=== PATIENT | male | born 1945 | race Caucasian/White ===

== ENCOUNTER 2022-07-12 15:49 | Outpatient (CLI) | payer MEDICARE, SELFPAY ==
--- OUTSIDE RECORDS SUMMARY | 2022-07-12 07:56 | XMS_ITS | Clinical Summary ---
:1945 Author Organization [facility] [place] [address] Care Team Providers Name Role Phone Stalin Wood MD Primary Care Provider Allergies No known active allergies Medications Medication Sig Dispensed Refills Start Date End Date Status LIPITOR 10 MG TAB Take 10 mg by 0 11/25/2007 Active mouth at bedtime. hydroCHLOROthiazide 12.5 Take 12.5 mg by 0 0 Active mg capsule mouth every morning. cholecalciferol (VITAMIN Take 1,000 Units 0 Active D3) 1,000 unit tablet by mouth once daily. glucosamine HCl 1,500 mg Take 1,500 mg by 0 Active tab mouth once daily. multivitamin therapeutic Take 1 tablet by 0 Active (THERAGRAN; ONCOVITE) mouth once daily. tablet tadalafiL (CIALIS) 5 mg Take 5 mg by mouth 0 020 Active tablet once daily if needed. vit Take 1 capsule by 0 05/16/2020 A ctive C,B-Np-clcvn-lutein-zeax mouth once daily. an (PRESERVISION AREDS-2) capsule fish oil-omega-3 fatty Take 2 capsules by 0 Active acids (FISH OIL) mouth once daily. 1,200-360 mg cap One capsule is 1200 mg-360 mg acetaminophen (TYLENOL Take 2 tablets by 0 0 Active EXTRA STRGTH) 500 mg mouth every 6 tabletIndications: Renal hours if needed. mass Max acetaminophen dose: 4000mg in 24 hrs. oxyCODONE (ROXICODONE) 5 Take 1-2 tablets 12 tablet 0 07/06/20 20 Active mg immediate release by mouth every 4 tabletIndications: Renal hours if needed mass for Pain sennosides-docusate, Take 1-2 tablets 30 tablet 1 07/06/2020 Active 8.6-50 mg, (SENOKOT S) by mouth 2 times 8.6-50 mg daily if needed. 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 How many drinks containing alcohol do you have 1 or 2 05/16/2020 on a typical day when you are drinking? How often do you have six or more drinks on one Never 05/16/2020 occasion? Comment: Not asked Sex Assigned at Date Recorded Not on file Obstetrics History Last Filed Vital Signs Vital Sign Reading Time Taken Comments Blood Pressure 142/83 07/06/2020 8:00 AM CDT Pulse 57 07/06/2020 8:00 AM CDT Temperature 36.6 ??C (97.9 ??F) 07/06/2020 8:00 AM CDT Respiratory Rate 18 07/06/2020 8:00 AM CDT Oxygen Saturation 96% 07/06/2020 8:00 AM CDT Inhaled Oxygen Concentration - - Weight 68.7 kg (151 lb 7.3 oz) 07/04/2020 6:28 AM CDT Height 172.7 cm (5' 8) 07/04/2020 6:28 AM CDT Body Mass Index 23.03 07/04/2020 6:28 AM CDT Plan of Treatment Health Maintenance Due Date Last Done Comments COVID-19 vaccine series (#1) 01/07/1946 Tdap 1958 Depression screening for age 12+ 1959 BMI (ht and wt on same day) for age 18+ 1965 Hepatitis C screening for age 18-79 1965 Tetanus booster 1967 Colonoscopy through age 75 1992 Lipids for age 45-75 1992 Zoster (shingles) series for age 50+ (1 of 2) 1997 Medicare Wellness for age 65+ 2012 Pneumococcal series for age 65+ (1 - PCV) 2012 Influenza for age 65+ 05/17/2022 Results Not on filefrom Last 3 Months Insurance Payer Benefit Plan / Subscriber ID Effective Dates Phone Addre ss Type Group [employer] [place] [employer] [id number] 2019-Present [address] [place] [address] Advance Directives Latest Code Status on File Code Status Date Activated Date Inactivated Comments Full Code 07/04/2020 5:51 AM 07/06/2020 2:37 PM Code Status Discussion: Not Discussed 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
--- OUTSIDE RECORDS SUMMARY | 2022-07-12 07:56 | XMS_ITS ---
:1945 Author Care Team Providers Name Role Phone RYANN HICKS MD Primary Care Provider [phone] Allergies Code Code System Name Reaction Severity Status Onset NKDA ? Medications Name Status Start Date Stop Date ? ? amoxicillin 875 mg-potassium clavulanate 125 mg tablet Completed ? 02/15/2022 TAKE 1 TABLET BY MOUTH TWICE DAILY FOR 10 DAYS atorvastatin 10 mg tablet Active ? Not av ailable TAKE ONE TABLET BY MOUTH AT BEDTIME cephalexin 250 mg capsule Completed ? 2021 TAKE 3 CAPSULES BY MOUTH (750MG) BY MOUTH THREE TIMES DAILY diclofenac 1 % topical gel Active ? Not a vailable doxycycline monohydrate 100 mg capsule Active ? Not available finasteride 5 mg tablet Completed ? 02/16/20 22 hydrochlorothiazide 12.5 mg capsule Active ? Not available TAKE 1 CAPSULE BY MOUTH ONCE DAILY hydrocodone 5 mg-acetaminophen 325 mg tablet Completed ? 02/15/2022 hydrocortisone 2.5 % topical cream with perineal Active ? Not available applicator Myrbetriq 25 mg tablet,extended release Active ? Not available Take 1 tablet every day by oral route. ondansetron 4 mg disintegrating tablet Active ? Not available oxycodone 5 mg tablet Completed ? 02/15/2022 prednisone 20 mg tablet Completed ? 02/16/20 22 TAKE ONE TABLET BY MOUTH TWICE A DAY Shingrix (PF) 50 mcg/0.5 mL intramuscular suspension, Completed ? 02/15/2022 kit tadalafil 20 mg tablet Active ? Not avail able TAKE ONE TABLET BY MOUTH EVERY DAY tadalafil 5 mg tablet Active ? Not availa ble TAKE ONE TABLET BY MOUTH NEEDED THIR TY MINUTES TO THIRTY SIX HOURS PRIOR TO INTERCOURSE Problems Name Status Onset Date Source ? Increased Frequency of Urination Active 03/14/2017 History Renal Mass Unknown 05/27/2020 ? Papillary Renal Cell Carcinoma Active 08/08/2020 ? Procedures Date Name Performed by ? ? Colonoscopy Information not maggy chin Notes: None ? Partial Nephrectomy, Robot Assisted Info rmation not available Laparoscopic, with Intra-operative Ultrasound (Surg) 12/22/2020 CT, Chest + Abdomen + Pelvis, W/ Informa tion not available Contrast 12/18/2021 CT, Chest + Abdomen + Pelvis, W/ Informa tion not available Contrast 05/25/2021 CT, Chest + Abdomen + Pelvis, W/ [facility] Radiology Department Contrast [address] [place] [address] (Work Place) Results Lab Results Date Name Specimen Result Interpretation Description Value Range Status Address ? 05/25/2021 Urinalysis, Dipstick ? Color-Status Yellow ? Clarity-Status Clear ? Glucose-Status Negative ? pH-Status 5.5 ? Nitrates-Status negative ? Blood-Status Negative ? Leuko-Status Negative ? Specimen Type Voided ? ? Past Encounters 02/15/2022 Increased Frequency of Urination; Papill colt Renal Cell Carcinoma Valentin Macias MD: [address] [facility] [place] [address], Ph. 05/25/2021 Perineal Pain; Papillary Renal Cell Carc inoma; Primary Erectile Dysfunction; Chronic Prostatitis Valentin Macias MD: [address] [place] [address], Ph. Social History Tobacco Smoking Status Never Smoker Vaccine List Vaccine Type pneumococcal polysaccharide PPV23 06/16/2016 Plan of Care Reminders Provider Appointments None recorded. ? ? Lab None recorded. ? ? Referral None recorded. ? ? Procedures None recorded. ? ? Surgeries None recorded. ? ? Imaging None recorded. ? ? Vitals 02/15/2022 01:50PM ESTABLISHED 10 Height Weight BMI 5 ft 10 in 155 lbs 22.2 kg/m2 05/25/2021 10:40AM ESTABLISHED 10 Height Weight BMI 5 ft 10 in 155 lbs 22.2 kg/m2 01/05/2021 09:10AM ESTABLISHED 10 Height Weight BMI 5 ft 10 in 150 lbs 21.5 kg/m2 08/08/2020 01:10PM ESTABLISHED 10 Height Weight BMI 5 ft 10 in 150 lbs 21.5 kg/m2 05/27/2020 09:50AM ESTABLISHED 20 Height Weight BMI 5 ft 10 in 150 lbs 21.5 kg/m2
[2022-07-12 16:05] LABS: Albumin* 4.5 g/dL (3.3-5.0); Chloride* 105 mmol/L (96-114); Sodium* 138 mmol/L (135-149)
[2022-07-12 16:06] LABS: Potassium* 4.2 mmol/L (3.6-5.1)
[2022-07-12 16:07] LABS: Cholesterol* 163 mg/dL (90-199); Creatinine* 1.2 mg/dL (0.5-1.5); Estimated Glomerular Filt Rate 63 ml/min
[2022-07-12 16:08] LABS: Alanine Aminotransferase* 33 U/L (4-50); Alkaline Phosphatase* 78 U/L (40-150); Aspartate Amino Transferase* 37 U/L (12-35); Bilirubin Total* 0.6 mg/dL (0.1-1.5); Blood Urea Nitrogen* 20 mg/dL (7-30); Calcium* 9.7 mg/dL (8.4-10.6); Carbon Dioxide* 26 mmol/L (20-32); Glucose* 92 mg/dL (60-115); Total Protein* 6.9 g/dL (6.0-8.3); Triglycerides* 141 mg/dL (40-149)
[2022-07-12 16:09] LABS: HDL Cholesterol* 43 mg/dL (>=40); LDL Cholesterol Calculated 92 mg/dL (<100)
[2022-07-12 16:38] LABS: PSA Diagnostic* 1.99 ng/mL (0.10-4.00)
== END 2022-07-12 15:50 | disposition home or self-care (01) ==
PROVIDERS: PCP Family Medicine; Visit Provider Family Medicine
DX: E78.5 Hyperlipidemia, unspecified (principal); I10 Essential (primary) hypertension; N13.8 Other obstructive and reflux uropathy; N40.1 Benign prostatic hyperplasia with lower urinary tract symptoms; Z12.5 Encounter for screening for malignant neoplasm of prostate
CPT/HCPCS: 80053; 80061; 84153

== ENCOUNTER 2022-07-16 11:01 | Outpatient (CLI) | payer MEDICARE, SELFPAY ==
--- OUTSIDE RECORDS SUMMARY | 2022-07-16 11:04 | XMS_ITS | Clinical Summary ---
:1945 Author Organization [facility] Address [place] [address] Care Team Providers Name Role Phone Stalin [...] 1 capsule by 0 05/16/2020 A ctive C,C-Ss-oorjj-lutein-zeax mouth once daily. an (PRESERVISION AREDS-2) capsule [...] containing 4 or more times a w [place] 05/16/2020 alcohol? How many drinks containing alcohol [...] ss Type Group [employer]ARE [place] [employer] [employer] [id number] 2019-Present [address] [place] [address] Advance Directives Latest Code Status on File Code Status Date Activated Date Inactivated Comments Full Code 07/04/2020 5:51 AM 07/06/2020 2:37 PM Code Status Discussion: Not Discussed Care Teams Family Court Counsellor Relationship Specialty Start Date End Date Stalin Wood MD PCP - General Family Practice 11/24/19 [address] [place] [address]
--- OUTSIDE RECORDS SUMMARY | 2022-07-16 11:04 | XMS_ITS ---
:1945 Author Care Team Providers Name Role Phone RYANN HICKS MD Primary Care Provider [phone] Allergies Code Code System Name Reaction Severity [...] CT, Chest + Abdomen + Pelvis, W/ [facility] Radiology Department Contrast [address] [place] [address] (Work Place) Results Lab Results Date Name Specimen Result Interpretation Description Value Range Status Address ? 05/25/2021 Urinalysis, Dipstick ? Color-Status Yellow ? Clarity-Status Clear ? Glucose-Status Negative ? pH-Status 5.5 ? Nitrates-Status negative ? Blood-Status Negative ? Leuko-Status Negative ? Specimen Type Voided ? ? Past Encounters 02/15/2022 Increased Frequency of Urination; Papill colt Renal Cell Carcinoma Valentin Macias MD: [address] [place] [address], Ph. 05/25/2021 Perineal Pain; Papillary Renal Cell Carc inoma; Primary Erectile Dysfunction; Chronic Prostatitis Valentin Macias MD: [address] [place] [address], Ph. Social History Tobacco Smoking Status Never [...]
[2022-07-16 21:59] LABS: Iron* 81 ug/dL (49-181)
[2022-07-16 22:34] LABS: Ferritin* 12.6 ng/mL (17.9-464.0)
[2022-07-16 22:48] LABS: Vitamin B12* 565 pg/mL (243-894)
[2022-07-18 21:58] LABS: Hematocrit (client supplied) 39.7 %
== END 2022-07-16 11:02 | disposition home or self-care (01) ==
PROVIDERS: PCP Family Medicine; Visit Provider Family Medicine
DX: D64.9 Anemia, unspecified (principal)
CPT/HCPCS: 82607; 82728; 82747; 83540

== ENCOUNTER 2022-11-09 10:32 | Outpatient (CLI) | payer MEDICARE, SELFPAY ==
[2022-11-09 13:11] LABS: Ferritin* 33.2 ng/mL (17.9-464.0)
== END 2022-11-09 10:33 | disposition home or self-care (01) ==
LOC: NFLDREF 10:32
PROVIDERS: PCP Family Medicine; Visit Provider Family Medicine
DX: D64.9 Anemia, unspecified (principal)
CPT/HCPCS: 82728

== ENCOUNTER 2022-12-13 07:20 | Outpatient (CLI) | payer MEDICARE, SELFPAY ==
--- NOTE | 2022-12-13 07:15 | CRLHL7_ITS ---
For Patients: As a result of the Century Cures Act, medical imaging exams and procedure reports are released immediately into your electronic medical record. You may view this report before your referring provider. If you have questions, please contact your health care provider. Indication: Right radicular pain and right leg pain. Technique: Noncontrast sagittal and axial T1, T2, and sagittal STIR sequences are provided. Comparison: MRI lumbar spine 08/04/2012 Findings: Levoscoliosis with apex at L1-2. No fractures. No prevertebral or paraspinal edema. No aggressive osseous lesions. The conus medullaris is normal in signal and location. New bilateral renal cysts. T12-L1: No significant spinal canal stenosis or neural foramen narrowing. L1-2: Mild disc bulge and facet arthrosis. Mild narrowing of the thecal sac. No significant spinal canal stenosis. Mild right neural foramen narrowing. No left neural foramen narrowing. L2-3: Moderate interspace narrowing. Mild circumferential disc bulge and facet arthrosis. Mild right subarticular recess narrowing. Mild right neural foramen narrowing. No left neural foramen narrowing. L3-4: Mild disc bulge and facet arthrosis. Mild subarticular recess stenosis bilaterally. Mild right neural foramen narrowing. No left neural foramina narrowing. L4-5: Diffuse disc bulge eccentric to the left with hypertrophic endplate osteophytic spurring and worsening of advanced left facet arthrosis. Severe left subarticular recess narrowing with impingement of traversing left L5 nerve roots. Moderate-severe left neural foramen narrowing with impingement of the left L4 nerve roots. No right neural foramen narrowing. L5-S1: Severe disc space narrowing. Disc bulge eccentric to the left with hypertrophic endplate osteophytic spurring. Moderate facet arthrosis. No significant spinal canal stenosis. Mild to moderate neural foramen narrowing bilaterally. Impression: 1. No acute osseous abnormality. Levocurvature with apex at L1-2. Multilevel lumbar spondylosis. 2. At L4-5 there is worsening of severe left subarticular recess narrowing with impingement of left L5 nerve roots. Moderate-severe left neural foramina narrowing with impingement of the left L4 nerve roots. Worsening advanced left facet arthrosis at L4-5. 3. At L5-S1 there is mild to moderate bilateral neural foramen narrowing. Stable moderate left facet arthrosis at L5-S1 Dictated by Edson Coley MD @ 12/13/2022 10:01:57 AM (Electronically Signed)
--- NOTE | 2022-12-13 08:00 | CRLHL7_ITS ---
For Patients: As a result of the Century Cures Act, medical imaging exams and procedure reports are released immediately into your electronic medical record. You may view this report before your referring provider. If you have questions, please contact your health care provider. HISTORY: Right hip and buttock pain. TECHNIQUE: Noncontrast MRI of the right hip. COMPARISON: Radiographs 11/07/2020. FINDINGS: Right hip: Mild osteophyte formation involving the femoral head-neck junction. Mildly nonspherical appearance of the femoral head neck junction compatible with mild underlying CAM morphology. No right hip joint effusion. There are sequelae of prior degenerative labral tearing involving anterior to superior lateral acetabular labrum. This is noted on coronal PD fat-sat image #23 of series 6 for example. There is some high-grade cartilage wear involving the acetabular periphery posterior superiorly as noted on the coronal PD fat-sat large [id number] image #20 of series 3 (grade 3). Moderate grade femoral head articular cartilage wear (areas of grade 2 and grade 3 cartilage thinning). There is no avascular necrosis of the right femoral head. - Left hip: No hip joint effusion. Degenerative acetabular labral tearing is noted on the coronal PD fat-sat large [id number] images. 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 Moderate grade femoral head cartilage wear. Mild osteophyte formation. No avascular necrosis of left femoral head. - Osseous structures: No fracture or pathologic marrow replacement process. No osteomyelitis. - Musculotendinous structures and bursae: Distal gluteal tendons are intact. No trochanteric bursal fluid collection. There is tendinosis of the bilateral common hamstring tendons. Distal iliopsoas tendons are intact. - Other findings: Degenerative changes within the lumbar spine. Mild sacroiliac joint degenerative changes. - Intrapelvic soft tissues: Enlarged prostate. Prior inguinal hernia repairs. No deep pelvic fluid collection. IMPRESSION: 1. Degenerative changes of the right hip with degenerative acetabular labral tearing. Areas of moderate and high-grade cartilage wear. No right hip joint effusion. 2. Degenerative changes of the left hip. 3. Degenerative changes within the spine. 4. Tendinosis of the bilateral common hamstring tendons. Dictated by Kane Gallagher MD @ 12/13/2022 1:14:26 PM (Electronically Signed)
== END 2022-12-13 07:21 | disposition home or self-care (01) ==
PROVIDERS: PCP Family Medicine; Visit Provider Family Medicine
DX: M54.10 Radiculopathy, site unspecified (principal); M79.605 Pain in left leg; M47.816 Spondylosis without myelopathy or radiculopathy, lumbar region; M51.27 Other intervertebral disc displacement, lumbosacral region
CPT/HCPCS: 72148; 73721

== ENCOUNTER 2022-12-27 08:36 | Outpatient (CLI) | payer MEDICARE, SELFPAY | END 2022-12-27 08:37 | disposition home or self-care (01) | PROVIDERS: PCP Family Medicine; Visit Provider Family Medicine | DX: D64.9 Anemia, unspecified (principal); I10 Essential (primary) hypertension; R09.81 Nasal congestion | CPT/HCPCS: 82728; 83540; 83550 ==

== ENCOUNTER 2023-01-31 10:45 | Outpatient (RCR) | payer MEDICARE, SELFPAY ==
--- NOTE | 2023-01-10 15:55 | PT.OPEX ---
PT [place] Outpatient Eval PT [facility] Outpatient Eval Start: 12/20/22 14:27 Freq: Status: Active Protocol: Document 12/20/22 16:51 MICHAEL (Rec: 12/20/22 16:51 MICHAEL Laptop) E-signed By Leann Mtz, PT Physical Therapy Outpatient Evaluation Insurance Information Insurance Name [facility] Insurance Information/Comments [facility] Medical Diagnosis LBP M54.50 LUMBAGO WITH SCIATICA/RIGHT SIDE M54.41 HIGH HAMSTRING STRAIN S76.31A Treating Diagnosis DIFFICULTY SITTING FOR >20MIN Subjective Subjective I'VE BEEN DEALING WITH THIS FOR A COUPLE OF YEARS. IT REALLY ONLY HURTS ME WHEN I'M SITTING WHEN DRIVING. HE IS FRUSTRATED AND WANTS TO BE ABLE TO RETURN TO BIKING, WALKING AND HAS A TRIP PLANNED. Pain Comments POINT TENDER AT ISCHIAL TUBEROSITY 5/10 NO PAIN AT REST. 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 Preferred Name KAYLEE Precautions Treatment Precautions/Contraindications AVOID DEEP LUNGING, SQUATS >90 Therapy Limitations/Systems Review Not Limited Objective Other/Pertinent Objective Posture Assessment: LUMBAR ROM Flexion: UNREMARKABLE repeated flexion: UNREMARKABLE Extension: UNREMARKABLE repeated ext: UNREMARKABLE Right Sidebend: UNREMARKABLE Left Sidebend: UNREMARKABLE LE MMT Hip flexion: WNL Hip Extension: WNL Hip abduction: WNL knee extension: WNL Knee Flexion:WNL Dorsiflexion/heel walk: WNL Plantarflexion/toe walk: WNL Great Toe Extension: UNREMARKABLE JOINT MOBILITY/PALPATION : POINT TENDERNESS AT THE ISHCIAL TUBEROSITY RIGHT L4, L5 FACET HYPOMOBILITY SPECIAL TESTS Straight leg raise: Crossed straight leg raise: Slump test: Quadrant test: SI/HIPI tests JUAN ANTONIO FADIR SCOUR [place] Test: Standing forward bend Test: Gapping and Compression test: TX: TB:ONE LEGGED BRIDGE WITH CONTRALATERAL LEG EXTENDED 3 X 45 SEC (RED) TB:STDG SUSTAIED HIP EXT 3 X 45 SEC (RED) PRONE PLANK ON ELBOWS 3 X 45 SEC Assessment Assessment/Impression PATIENT IS A [address] MALLOY AND DR VICTOR REFERRED TO PHYSICAL THERAPY D /T LUMBAR PAIN, LUMBAGO WITH RIGHT SCIATICA, RIGHT HIGH HAMSTRING STRAIN. PMHX INCLUDES BUT NOT LIMITED TO ANEMIA, PAPILLARY RENAL CELL CARCINOMA, RIGHT HAND PAIN D/T FALL (08/2022), HTN, HLD, BPH WITH URNIARY OBSTRUCTION, H/O NECK PAIN, H/O HERNIA REPAIR (2014), H/O PARTIAL NEPHRECTOMY, AND UE SURGERY IN 2018. HE HAS HAD PHYSICAL THERAPY LAST FALL THAT INCLUDED STRETCHING, STRENGTHENING, AND DRY NEEDLING WITH MARGINAL RESULTS . ADDITIONALLY, HAS RECENTLY BEEN PRESCRIBED A MEDROL DOSE PACK WITH THE SAME MARGINAL SYMPTOM IMPROVEMENT. HIS GREATEST CHALLENGE IS PAIN AT THE ISCHIAL TUBERSOSITY AFTER SITTING FOR PROLONGED (>20MIN) . HE HAS USED DEEP TISSUE TRIGGER POINT TECHNIQUES USING A HARD BALL TO SIT ON DURING DRIVING THAT INITIALLY HELPED BUT NO LONGER MAKES ANY GREAT DIFFERRENCE. HIS RECENT MRI FOR HIS HIP AND LUMBAR SPINE REVEALED MULTILEVEL SPONDYLOSIS, LEFT L4 AND L5 IMPINGEMENT WITH LEFT L5 BEING MODERATE TO SEVERE, L5-S1 MODERATE BILATERAL NARROWING AT THE NEURAL FORAMIN, LEFT L5 FACET ATHROSIS. ADDITIONALLY, RIGHT HIP DEGENERATEIVE ACETABULAR LABARAL TARING, MOD TO HIGH GRADE CARTILAGE WEAR AND TENDINOSIS OF THE COMMON HAMSTRING TENDON. HE IS A FIT MAN WITH A DAILY STRETCHING ROUTINE TO INCLUDE SHOULDER, BACK AND LEGS. HIS COMPREHENSIVE ASSESSMENT REVEALED NORMAL ROM TO HYPERFLEXIBILITY ABOUT THE LUMBOSACRAL REGION, NORMAL STRENGTH AND UNREMARKABLE FOR ALL THE PROVOCATION TESTS TO THE LUMBAR SPINE AND HIPS. HE IS POINT TENDER AT THE HAMSTRING ORIGIN BUT NO RADICULOPATHY NOTED TODAY NOR COULD BE ELICITED. HIS PATIENT CENTERED GOAL IS RETURN TO BIKING NOW THAT THE WEATHER IS CHANGING WELL TOLERATE A TRIP WITH HIS TO [place] PLANNED IN A COUPLE OF WEEKS. TODAY WE BEGAN WITH EDUCATING THE PATIENT ON TENDINOSIS VS TENDONITIS AND DISCUSSED SUSTAINED LOW LOAD HOLD FOR 30 -45 SEC TO TARGET THE HAMSTRING AT IT'S ORIGAN FOR STRENGTHENING WELL STABILITY OF THE LUMBAR/HIP COMPLEX NOTING HIS ABOVE AVERAGE FLEXIBILITY. HE PERFORMS A DAILY ROUTINE OF STRETCHES AND MOBILIZATION FROM HIS NECK TO THIS TOES AND I ADDED THREE EXERCISES TO THIS ROUTINE. I WILL ASSESS THE TOLERANCE NEXT VISIT AND ADD ACCORDINGLY ALONG WITH PERFORM DTM TO THE ISCHIAL TUBEROSITY MUSCLE JUCTION TO SWITCH INTO AN ACTIVE INFLAMMATORY PROCESS IN ORDER TO ALLOW THE BODY TO COMPLETE THIS CYCLE AND HEAL. HE VERBALIZED UNDERSTANDING OF ALL SKILLED INSTRUCTION AND AGREEABLE TO POC AND FREQ. Primary Functional Limitations SITTING FOR >20 MIN Plan of Care Rehabilitation Potential Good Physical Therapy Goals 1. PATIENT WILL TOLERATE SITTING FOR 30-45 MIN BEFORE REQUIRING TO STAND AND STRETCH DURING DRIVING IN 6-8 WEEKS. 2. PATIENT WILL REPORT MIN (<2 /10) POINT TENDERNESS TO ISHCIAL TUBEROSISITY IN 6-8 WEEKS. 3. PATIENT WILL BE INDEPENDENT WITH HIS HEP AND DEMONSTRATE SELF PROGRESSION IN 6-8 WEEKS. Coordination/Communication With Referral Source Treatment Plan/Direct Interventions Gait Training,Heat,Ice/Cold/ Vasopneumatic,Joint Mobilization,Manual Therapy, Neuromuscular Re-ed, Therapeutic Activities, Therapeutic Exercises Frequency/Duration 1W8 Patient Will Be Discharged From Therapy Completion of LTG(s) Discharge Plan Comments DISCHARGE SELF AND INDEPENDENT HOME EXERCISE PROGRAM WHEN GOALS MET. Evaluation Billing Untimed Code Treatment Minutes 20 PT Eval No Charge No Complexity Low Certification Information Initial Certification Date 12/20/22 Ending Certification Date 03/15/23 Provider Signature Shows Agreement With POC & Medical Necessity Physician Signature & Date Requested Please Sign/Date Here Physician Comment/Change : Physician NPI Number #
--- NOTE | 2023-01-31 11:39 | PT.OPDNX ---
PT [place] [facility] Daily Note PT [facility] Outpatient Daily Note Start: 12/20/22 14:27 Freq: Status: Active Protocol: Document 01/31/23 10:45 MICHAEL (Rec: 01/31/23 11:38 MICHAEL [id number]) E-signed By Leann Mtz, PT PT OP Daily Progress Note Visit Information Note Type Discharge Note Visit Number 6 Insurance Information Insurance Name [facility] Insurance Information/Comments [facility] Medical Diagnosis LBP M54.50 LUMBAGO WITH SCIATICA/RIGHT SIDE M54.41 HIGH HAMSTRING STRAIN S76.31A Treating Diagnosis DIFFICULTY SITTING FOR >20MIN Subjective Subjective PATIENT RETURNS TODAY WITH C/O FATIGUE D/T HIS FALLING AND HIM HAVING TO CARE FOR HER . HE DENIES ANY FALLS HIMSELF AND REPORTS CONTINUED IMPROVEMENT WITH HIS HAMSTRING SORENESS. Pain Comments POINT TENDER AT ISCHIAL TUBEROSITY 11/23 NO PAIN AT REST. Preferred Name KAYLEE Precautions Treatment Precautions/Contraindications AVOID DEEP LUNGING, SQUATS >90 Home Exercise Home Exercise Comments 12/26/22: ADJUSTED HEP TO PERFORM PRESCRIBED REPS PER EXERCISE Objective Other/Pertinent Objective Posture Assessment: LUMBAR ROM Flexion: UNREMARKABLE repeated flexion: UNREMARKABLE Extension: UNREMARKABLE repeated ext: UNREMARKABLE Right Sidebend: UNREMARKABLE Left Sidebend: UNREMARKABLE LE MMT Hip flexion: WNL Hip Extension: WNL Hip abduction: WNL knee extension: WNL Knee Flexion:WNL Dorsiflexion/heel walk: WNL Plantarflexion/toe walk: WNL Great Toe Extension: UNREMARKABLE JOINT MOBILITY/PALPATION : POINT TENDERNESS AT THE ISHCIAL TUBEROSITY RIGHT L4, L5 FACET HYPOMOBILITY SPECIAL TESTS Straight leg raise: Crossed straight leg raise: Slump test: Quadrant test: SI/HIPI tests JUAN ANTONIO FADIR SCOUR [place] Test: Standing forward bend Test: Gapping and Compression test: Patient Instructed in Risks/Benefits Yes Therapeutic Exercise Therapeutic Exercise Minutes (minutes) 45 Therapeutic Exercise: To Restore TM 7 MIN 0% Functional Status SUPINE TRUNK ROTATION R/L 3 X 10 SEC DKTC 3 X 15 SEC BACK EXT X15 60# SUPINE BILATERAL HAMSTRING DIG 3 X 30 SEC SUPINE BILATERAL HIP EXT ON SAO TOMEAN BALL 3 X 30 SEC ONE LEGGED BRIDGE WITH CONTRALATERAL LEG EXTENDED 3 X 30 SEC TB: STDG SUSTAINED HIP EXT 3 X 30 SEC (GREEN) TB: STDG SUSTAINED KNEE FLEX AT 90 DEGREES (GREEN) 3 X 30 SE Treatment Minutes Timed Code Treatment Minutes 45 Total Treatment Time 45 Billing Units Therapeutic Exercise Units 3 Plan of Care Physical Therapy Goals 1. PATIENT WILL TOLERATE SITTING FOR 30-45 MIN BEFORE REQUIRING TO STAND AND STRETCH DURING DRIVING IN 6-8 WEEKS. GOAL MET 2. PATIENT WILL REPORT MIN (<2 /10) POINT TENDERNESS TO ISCHIAL TUBEROSITY IN 6-8 WEEKS. GOAL MET 3. PATIENT WILL BE INDEPENDENT WITH HIS HEP AND DEMONSTRATE SELF PROGRESSION IN 6-8 WEEKS. GOAL MET Daily Plan of Care Discharge Recertification Information Provider Signature Shows Agreement With POC & Medical Necessity Discharge Note Discharge Summary PATIENT IS A [address] MALLOY AND DR VICTOR REFERRED TO PHYSICAL THERAPY D /T LUMBAR PAIN, LUMBAGO WITH RIGHT SCIATICA, RIGHT HIGH HAMSTRING STRAIN. PMHX INCLUDES BUT NOT LIMITED TO ANEMIA, PAPILLARY RENAL CELL CARCINOMA, RIGHT HAND PAIN D/T FALL (08/2022), HTN, HLD, BPH WITH URINARY OBSTRUCTION, H/O NECK PAIN, H/O HERNIA REPAIR (2013), H/O PARTIAL NEPHRECTOMY, AND UE SURGERY IN 2018.RECENT MRI FOR HIS HIP AND LUMBAR SPINE REVEALED MULTILEVEL SPONDYLOSIS, LEFT L4 AND L5 IMPINGEMENT WITH LEFT L5 BEING MODERATE TO SEVERE, L5-S1 MODERATE BILATERAL NARROWING AT THE NEURAL FORAMEN, LEFT L5 FACET ARTHROSIS. ADDITIONALLY, RIGHT HIP DEGENERATIVE ACETABULAR LABRAL TARING, MOD TO HIGH GRADE CARTILAGE WEAR AND TENDINOSIS OF THE COMMON HAMSTRING TENDON. PATIENT HAS PARTICIPATED IN A COMPREHENSIVE AND INDIVIDUALIZED PROGRAM TO ADDRESS HIS CHRONIC LUMBAR PAIN WITH INTERMITTENT SCIATICA SPECIFICALLY IT CROSS ALONG SIDE THE HAMSTRING ORIGIN. ADDITIONALLY, IT WAS DETERMINED THAT HE WAS EXPERIENCING A TENDINOSIS AT THIS JUNCTION. HIS PROGRAM CONSISTED OF INITIALLY DEEP TISSUE MASSAGE WITH CROSS FRICTION IN ATTEMPT TO INCREASE BLOOD FLOW. HE TOLERATED HIS PROGRAM WELL WITH REPORTS OF CESSATION OF HIS PAIN WELL RETURN TO BIKING AT DISTANCES PRIOR TO THE FLARE. AT THIS TIME, HE HAS MET HIS GOALS FOR PHYSICAL THERAPY AND IS INDEPENDENT WITH HIS HOME PROGRAM AND THEREFORE DISCHARGED TODAY. PATIENT VERBALIZED UNDERSTANDING TO ALL SKILLED TEACHING AND IS IN COMPLETE AGREEMENT. Date of First Visit for Therapy 12/20/22 Date of Last Visit for Therapy 01/31/23
== END 2023-02-28 09:58 | disposition home or self-care (01) ==
PROVIDERS: PCP Family Medicine; Visit Provider Family Medicine
DX: M54.41 Lumbago with sciatica, right side (principal); Z51.89 Encounter for other specified aftercare
CPT/HCPCS: 97110; 97140; 97161

== ENCOUNTER 2023-07-02 08:15 | Outpatient (CLI) | payer MEDICARE, SELFPAY | END 2023-07-02 08:16 | disposition home or self-care (01) | LOC: NFLDREF 07-04 15:55 | PROVIDERS: PCP Family Medicine; Referring Provider Family Medicine; Visit Provider Family Medicine | DX: E78.5 Hyperlipidemia, unspecified (principal); Z13.9 Encounter for screening, unspecified; D64.9 Anemia, unspecified; Z12.5 Encounter for screening for malignant neoplasm of prostate | CPT/HCPCS: 80061; 80076; 82728; 84153 ==

== ENCOUNTER 2024-07-13 13:00 | Outpatient (RCR) | payer MEDICARE, SELFPAY ==
--- NOTE | 2024-06-23 13:57 | PT.OPEX ---
PT [facility] Eval PT [facility] Out[facility] Eval Start: 06/23/24 07:26 Freq: Status: Active Protocol: Document 06/23/24 07:26 GABI (Rec: 06/23/24 13:55 GABI [id number]) E-signed By Artemio Nunes DPEh Physical Therapy Outpatient Evaluation Insurance Information Insurance Name Medicare B,[employer] Medical Diagnosis cervicalga L sided neck pain Treating Diagnosis cervical pain muscle weakness Referring MD misty taylor Subjective Subjective 10 min late Simón comes into clinic dealing with complaints of neck pain with intermittent sharp pain into L ear. Feels like this pain has been ongoing for about a year now intermittently. It can vary in intensity with some days it is barely a 1/10 and others it can be 8/10. Does not think he has any specific mechanics claudia increase pain is just random overall. 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 On occasion can get pain at the base of his skull that can wake him while sleeping. Pain Comments 1-04/25 Current Work Status Retired Precautions Treatment Precautions/Contraindications htn djd Objective Other/Pertinent Objective CERVICAL ROM Flexion: 25 Extension: 40 Right Rotation: 38 Left Rotation: 52 SHOULDER AROM WNL pain free NECK/SHOULDER MMT: Shoulder flexion: R 4+/5 L 4+/ 5 Shoulder abduction: R 4/5 L 4/ 5 Shoulder External Rotation: R 4+/5 L4+ /5 Shoulder Internal Rotation: R 5/5 L 5/5 Elbow Flexion: R5 /5 L5 /5 Elbow Ext: R 5/5 L 5/5 JOINT MOBILITY/PALPATION increased tenderness with sub occipital and upper trap palpation hypomobile cervical spine in R rotation Central PAs and bilateral side glides Assessment Assessment/Impression Pt is a 78 yr old male who presents with concerns of neck pain. Patient also has notable objective findings including limited ROM, impaired shoulder girdle stability, decreased strength also likely contributing to the problem. Patient is a good candidate for skilled therapy to target deficits described above. Skilled PT intervention is necessary for use of therapeutic exercise manual therapy, neuromuscular re- education, , and therapeutic activity. Functional impairments include difficulty with: sleeping strength day to day chores. See appropriate sections of PT eval for complete list of goals and POC . D/C plan and criteria is for pt to achieve the goals as listed below or until max rehab potential is met. Pt was agreeable with plan of care and goals established. Plan of Care Rehabilitation Potential Good Physical Therapy Goals GOALS Pt will be independent with HEP within 8-10 weeks to allow for independence and continued improvement past formal therapy Patient will demonstrate/ report ability to sleep with losing <1 hours of sleep being interrupted by neck pain. within 8-10 weeks Patient will report or demonstrate the ability to have 5/5 strength in all shoulder planes for household and recreational activity within 8-10 weeks. The patient will be able to return to participation in cycling with pain level <1/10 3-4 days a week within 8-10 weeks to return to normal recreational activity. Coordination/Communication With Referral Source Treatment Plan/Direct Interventions Joint Mobilization,Manual Therapy,Neuromuscular Re-ed, Self-Care/Home Management, Therapeutic Activities, Therapeutic Exercises Frequency/Duration 1-2 visits a week for 8-10 weeks Patient Will Be Discharged From Therapy Completion of LTG(s), Independent w/HEP, Independently Progressing Evaluation Billing Untimed Code Treatment Minutes 25 Complexity Low Certification Information Initial Certification Date 06/23/24 Ending Certification Date 09/21/24 Provider Signature Required Yes Provider Signature Shows Agreement With POC & Medical Necessity Physician NPI Number Write NPI# Here Physician Comment/Change : Physician Signature & Date Requested Please Sign/Date Here
== END 2024-10-30 08:32 | disposition home or self-care (01) ==
PROVIDERS: PCP Family Medicine; Visit Provider Family Medicine
DX: M54.2 Cervicalgia (principal); M62.81 Muscle weakness (generalized); Z51.89 Encounter for other specified aftercare
CPT/HCPCS: 97110; 97140; 97161

== ENCOUNTER 2024-07-16 07:46 | Outpatient (CLI) | payer MEDICARE, SELFPAY ==
--- OUTSIDE RECORDS SUMMARY | 2024-07-16 12:32 | XMS_ITS | Clinical Summary ---
Author Organization [facility] Address [place], [place] [address] Care Team Providers Care Biomedical Repair Technician Name Role Phone Stalin Wood MD Primary Care Provider [phone] Allergies No known active allergies Medications Medication Sig Dispensed Refills Start Date End Date Status LIPITOR 10 MG TAB Take 10 mg by mouth at bedtime. 0 11/25/2007 Active hydroCHLOROthiazid e 12.5 mg capsule Take 12.5 mg by mouth every morning. 05/11/2020 Active cholecalciferol (VITAMIN D3) 1,000 unit tablet Take 1,000 Units by mouth once daily. Active glucosamine HCl 1,500 mg tab Take 1,500 mg by mouth once daily. Active multivitamin therapeutic (THERAGRAN; ONCOVITE) tablet Take 1 tablet by mouth once daily. Active tadalafiL (CIALIS) 5 mg tablet Take 5 mg by mouth once daily if needed. 03/21/2020 Active vit C,U-Im-tznuf-lutei n-zeaxan (PRESERVISION AREDS-2) capsule Take 1 capsule by mouth once daily. 0 05/16/2020 Active fish oil-omega-3 fatty acids (FISH OIL) 1,200-360 mg cap Take 2 capsules by mouth once daily. One capsule is 1200 mg-360 mg Active acetaminophen (TYLENOL EXTRA STRGTH) 500 mg tabletIndications: Renal mass Take 2 tablets by mouth every 6 hours if needed. Max acetaminophen dose: 4000mg in 24 hrs. 0 07/06/2020 Active oxyCODONE (ROXICODONE) 5 mg immediate release tabletIndications: Renal mass Take 1-2 tablets by mouth every 4 hours if needed for Pain 12 tablet 07/06/2020 Active sennosides-docusat e, 8.6-50 mg, (SENOKOT S) 8.6-50 mg tabletIndications: Renal mass Take 1-2 tablets by mouth 2 times daily if needed. 30 tablet 1 07/06/2020 Active Active Problems Problem Noted Date Diagnosed Date Degeneration of lumbar or lumbosacral interverte bral disc 09/08/2012 Overview (09/08/2012): Lumbar facet arthropathy 09/08/2012 Plantar fascial fibromatosis 11/25/2007 Resolved Problems Problem Noted Date Diagnosed Date Resolved Date Degeneration of lumbar or tammy mbosacral intervertebral disc 09/08/2012 09/08/2012 Overview (09/08/2012): Social History Tobacco Use Types Packs/Day Years Used Date Smoking Tobacco: Never Smokeless Tobacco: Never Tobacco Cessation:Counseling Given: Yes Alcohol Use Standard Drinks/Week Comments Yes 0 (1 standard drink = 0.6 oz pur e alcohol) Sex and Gender Information Value Date Recorded Sex Assigned at Not on file Gender Identity Not on file Sexual Orientation Not on file Obstetrics History Last Filed Vital Signs Vital Sign Reading Time Taken Comments Blood Pressure 142/83 07/06/2020 8:00 AM CDT Pulse 57 07/06/2020 8:00 AM CDT Temperature 36.6 ??C (97.9 ??F) 07/06/2020 8:00 AM CD T Respiratory Rate 18 07/06/2020 8:00 AM CDT Oxygen Saturation 96% 07/06/2020 8:00 AM CDT Inhaled Oxygen Concentration - - Weight 68.7 kg (151 lb 7.3 oz) 07/04/2020 6:28 A M CDT Height 172.7 cm (5' 8) 07/04/2020 6:28 AM CDT Body Mass Index 23.03 07/04/2020 6:28 AM CDT Plan of Treatment Health Maintenance Due Date Last Done Comments Tdap 1958 Depression screening for age 12+ 1959 BMI (ht and wt on same day) for age 18+ 1965 Hepatitis C screening for age 18-79 1965 Tetanus booster 1967 Zoster (shingles) series for age 50+ (1 of 2) 07/08/19 97 Medicare Wellness for age 65+ 2012 Pneumococcal series for age 65+ (1 of 1 - PCV) 012 RSV vaccine for adults or pr egnancy (1 - 1-dose 75+ series) 2022 COVID-19 vaccine series (1 - 2023-25 season) 4 Influenza for age 65+ 05/17/2024 Advance Directives * Full Code (Latest Code Status on File) Date Activated Date Inactivated Comments 07/04/2020 5:51 AM 07/06/2020 2:37 PM Question Answer Comments Code Status Discussion: Not Discussed Care Teams Biomedical Repair Technician Relationship Specialty Start Date End Date Stalin Wood MD [id number] [place] [address] PCP - General Family Practice 11/24/19
== END 2024-07-16 07:47 | disposition home or self-care (01) ==
LOC: NFLDREF 12:30
PROVIDERS: PCP Family Medicine; Referring Provider Family Medicine; Visit Provider Family Medicine
DX: Z00.00 Encounter for general adult medical examination without abnormal findings (principal); I10 Essential (primary) hypertension; E78.5 Hyperlipidemia, unspecified; D64.9 Anemia, unspecified; Z12.5 Encounter for screening for malignant neoplasm of prostate
CPT/HCPCS: 80053; 80061; 82043; 82570; G0103